=== PATIENT | male | born 1960 | race Caucasian/White ===

== ENCOUNTER 2022-08-09 16:23 | Observation (INO) | payer SELFPAY ==
[2022-08-09 17:22] LABS: Hemoglobin 16.4 g/dL (14.0-18.0); Mean Corpuscular HGB CONC 35.3 g/dL (32.0-36.0); Mean Corpuscular Hemoglobin 32.9 pg (27.0-31.0); Mean Corpuscular Volume 93.3 fl (78.0-98.0); Mean Platelet Volume 8.3 fL (7.4-10.4); Platelet Count 194 10x3/uL (130-400); RBC Distribution Width 11.1 % (11.5-14.5); Red Blood Cell (RBC) Count 4.98 mill/uL (4.70-6.10); White Blood Cell (WBC) Count 7.7 10x3/uL (4.8-10.8)
[2022-08-09] MEDS ORDERED: Vancomycin 1 GM VIAL ONE (17:37)
[2022-08-09] MEDS ORDERED: Ketorolac Tromethamine 30 MG/ML VIAL ONE (17:37)
[2022-08-09 17:39] LABS: #Lymphocytes 0.8 thou/uL (1.20-3.40); #Monocytes 0.7 thou/uL (0.11-0.59); #Neutrophils 6.2 thou/uL (1.40-6.50); %Basophils 0.5 % (0.0-1.0); %Eosinophils 0.2 % (0.0-10.0); %Lymphocytes 10.5 % (21.0-51.0); %Monocytes 8.6 % (0.0-10.0); %Neutrophils 80.1 % (42.0-75.0); MDiff Complete? YES; Platelet Morphology Comment Appears Adequate; RBC Morphology Normal
[2022-08-09 17:41] LABS: ALT (SGPT) 31 U/L (8-55); AST (SGOT) 31 U/L (5-34); Alkaline Phosphatase 56 U/L (40-110); Anion Gap 14 mmol/L (10-20); BUN (Urea Nitrogen) 5 mg/dL (8.4-25.7); Bilirubin, Total 0.4 mg/dL (0.2-1.2); Calc. Creatinine Clearance 0 mL/min (70-130); Calcium 8.6 mg/dL (7.8-10.44); Carbon Dioxide 25 mmol/L (22-29); Chloride 81 mmol/L (98-107); Estimated GFR 108; Globulin 2.8 g/dL (2.4-3.5); Glucose 124 mg/dL (70-105); Magnesium 1.7 mg/dL (1.6-2.6); Potassium 3.5 mmol/L (3.5-5.1); Protein, Total 6.8 g/dL (6.0-8.3)
[2022-08-09 17:43] LABS: Sodium 116 mmol/L (136-145)
[2022-08-09] MEDS ORDERED: Meropenem 2 GM in Sodium Chloride 0.9% 100 ML IVPB SCH (19:15)
[2022-08-09 20:55] LABS: SARS-CoV-2 NAA Rapid Test Not Detected (NotDetected)
[2022-08-09] MEDS: Sodium Chloride 0.9% 1,000 ML IV SCH (20:56)
[2022-08-09] MEDS ORDERED: Ondansetron ODT 4 MG TAB SL PRN (21:00)
[2022-08-09] MEDS ORDERED: Ondansetron PF 4 MG/2 ML Vial IVP PRN (21:00)
[2022-08-09] MEDS ORDERED: Acetaminophen 325 MG TAB PO PRN (21:00)
[2022-08-09] MEDS ORDERED: traMADol HCl 50 MG TAB PO PRN (21:25)
[2022-08-10] MEDS ORDERED: Vancomycin HCl 1 GM in Sodium Chloride 0.9% 250 ML 250 ML IVPB SCH ×3 (02:00→08:45)
[2022-08-10] MEDS ORDERED: Meropenem 1 GM in Sodium Chloride 0.9% 100 ML IVPB SCH (05:00)
[2022-08-10] MEDS ORDERED: Ondansetron ODT 4 MG TAB PO PRN (07:34)
[2022-08-10] MEDS ORDERED: Polyethylene Glycol 3350 17 GM Packet PO PRN (07:34)
[2022-08-10 07:46] LABS: ALT (SGPT) 32 U/L (8-55); AST (SGOT) 33 U/L (5-34); Albumin 3.4 g/dL (3.5-5.0); Alkaline Phosphatase 45 U/L (40-110); Anion Gap 10 mmol/L (10-20); BUN (Urea Nitrogen) Less than 4 mg/dL (8.4-25.7); Bilirubin, Total 0.4 mg/dL (0.2-1.2); Calc. Creatinine Clearance 136 mL/min (70-130); Calcium 7.9 mg/dL (7.8-10.44); Carbon Dioxide 25 mmol/L (22-29); Chloride 84 mmol/L (98-107); Estimated GFR 112; Globulin 2.3 g/dL (2.4-3.5); Glucose 118 mg/dL (70-105); Potassium 3.4 mmol/L (3.5-5.1); Protein, Total 5.7 g/dL (6.0-8.3)
[2022-08-10 07:47] LABS: #Lymphocytes 0.7 thou/uL (1.20-3.40); #Monocytes 0.8 thou/uL (0.11-0.59); %Basophils 0.5 % (0.0-1.0); %Eosinophils 0.1 % (0.0-10.0); %Lymphocytes 10.5 % (21.0-51.0); %Monocytes 12.3 % (0.0-10.0); %Neutrophils 76.6 % (42.0-75.0); Hemoglobin 15.7 g/dL (14.0-18.0); Mean Corpuscular HGB CONC 36.4 g/dL (32.0-36.0); Mean Corpuscular Hemoglobin 33.2 pg (27.0-31.0); Mean Corpuscular Volume 91.3 fl (78.0-98.0); Mean Platelet Volume 7.8 fL (7.4-10.4); Platelet Count 171 10x3/uL (130-400); Red Blood Cell (RBC) Count 4.72 mill/uL (4.70-6.10); White Blood Cell (WBC) Count 6.6 10x3/uL (4.8-10.8)
[2022-08-10 07:49] LABS: Sodium 116 mmol/L (136-145)
[2022-08-10] MEDS: cefTRIAXone\\ROCEPHIN 1 GM in Sodium Chloride 0.9% 100 ML IVPB SCH (08:18)
[2022-08-10] MEDS: Aspirin 81 mg Enteric Coated Tablet PO SCH (08:25)
[2022-08-10] MEDS: Magnesium Oxide 400 MG TAB PO SCH (08:32)
[2022-08-10] MEDS: Potassium Chloride 20 MEQ TAB PO SCH (08:32)
[2022-08-10] MEDS: HYDROcodone/Acetaminophen 10/325 mg Tablet PO SCH ×2 (08:32→16:09)
[2022-08-10] MEDS ORDERED: Thiamine 100 MG TAB PO SCH (11:45)
[2022-08-10] MEDS: Sodium Chloride 0.9% 1,000 ML IV SCH (12:45)
[2022-08-10 14:02] LABS: Creatinine, Urine 58.35 mg/dL (63-166)
[2022-08-10] MEDS ORDERED: Sodium Chloride 1 GM TAB PO SCH (15:30)
[2022-08-10 19:19] LABS: Anion Gap 10 mmol/L (10-20); BUN (Urea Nitrogen) 5 mg/dL (8.4-25.7); Calc. Creatinine Clearance 124 mL/min (70-130); Calcium 8.2 mg/dL (7.8-10.44); Carbon Dioxide 27 mmol/L (22-29); Chloride 88 mmol/L (98-107); Estimated GFR 110; Glucose 130 mg/dL (70-105); Potassium 3.2 mmol/L (3.5-5.1); Sodium 122 mmol/L (136-145)
[2022-08-10] MEDS: Ibuprofen 800 MG TAB PO PRN (20:32)
[2022-08-11] MEDS: Ibuprofen 800 MG TAB PO PRN ×2 (05:13→21:20)
[2022-08-11 05:57] LABS: ALT (SGPT) 50 U/L (8-55); AST (SGOT) 49 U/L (5-34); Albumin 3.7 g/dL (3.5-5.0); Alkaline Phosphatase 45 U/L (40-110); Anion Gap 12 mmol/L (10-20); BUN (Urea Nitrogen) 4 mg/dL (8.4-25.7); Bilirubin, Total 0.3 mg/dL (0.2-1.2); Calc. Creatinine Clearance 102 mL/min (70-130); Calcium 8.8 mg/dL (7.8-10.44); Carbon Dioxide 29 mmol/L (22-29); Cardiac Risk 2.6 (Less than 4.5); Chloride 95 mmol/L (98-107); Cholesterol 132 mg/dl (< 200 Desired); Estimated GFR 104; Globulin 2.4 g/dL (2.4-3.5); Glucose 106 mg/dL (70-105); HDL Cholesterol 50 mg/dL (>60 Neg Risk); LDL Cholesterol, Calculated 72 mg/dL; Potassium 4.1 mmol/L (3.5-5.1); Protein, Total 6.1 g/dL (6.0-8.3); Sodium 132 mmol/L (136-145); Triglycerides 50 mg/dL (Less than 150)
[2022-08-11] MEDS: Nicotine 21 MG PATCH TD SCH (08:40)
[2022-08-11] MEDS: cefTRIAXone\\ROCEPHIN 1 GM in Sodium Chloride 0.9% 100 ML IVPB SCH (08:40)
[2022-08-11] MEDS: Aspirin 81 mg Enteric Coated Tablet PO SCH (08:40)
[2022-08-11] MEDS: Potassium Chloride 20 MEQ TAB PO SCH (08:41)
[2022-08-11] MEDS: Sodium Chloride 1 GM TAB PO SCH (08:41)
[2022-08-11] MEDS: Magnesium Oxide 400 MG TAB PO SCH (08:41)
[2022-08-11] MEDS: Thiamine 100 MG TAB PO SCH (08:41)
[2022-08-11] MEDS: HYDROcodone/Acetaminophen 10/325 mg Tablet PO SCH ×3 (08:44→16:44)
[2022-08-11] MEDS ORDERED: predniSONE 10 MG TAB PO SCH (09:30)
[2022-08-11] MEDS ORDERED: diphenhydrAMINE 25 MG CAP PO SCH (09:30)
[2022-08-11 11:18] LABS: Anion Gap 11 mmol/L (10-20); BUN (Urea Nitrogen) 6 mg/dL (8.4-25.7); Calc. Creatinine Clearance 111 mL/min (70-130); Calcium 8.3 mg/dL (7.8-10.44); Carbon Dioxide 29 mmol/L (22-29); Chloride 96 mmol/L (98-107); Estimated GFR 106; Glucose 102 mg/dL (70-105); Potassium 3.4 mmol/L (3.5-5.1); Sodium 133 mmol/L (136-145)
[2022-08-11 12:36] VITALS: BMI 21.7
[2022-08-11] MEDS: Triple Antibiotic Oint 1 GM Packet TOP SCH (21:18)
[2022-08-12] MEDS: HYDROcodone/Acetaminophen 10/325 mg Tablet PO SCH ×3 (00:15→15:48)
[2022-08-12 06:03] LABS: Anion Gap 11 mmol/L (10-20); BUN (Urea Nitrogen) 5 mg/dL (8.4-25.7); Calc. Creatinine Clearance 109 mL/min (70-130); Calcium 8.5 mg/dL (7.8-10.44); Chloride 97 mmol/L (98-107); Estimated GFR 105; Glucose 85 mg/dL (70-105); Sodium 132 mmol/L (136-145)
[2022-08-12 06:09] LABS: Carbon Dioxide 28 mmol/L (22-29)
[2022-08-12] MEDS: predniSONE 10 MG TAB PO SCH (08:58)
[2022-08-12] MEDS: Sodium Chloride 1 GM TAB PO SCH (08:58)
[2022-08-12] MEDS: Potassium Chloride 20 MEQ TAB PO SCH (08:58)
[2022-08-12] MEDS: Aspirin 81 mg Enteric Coated Tablet PO SCH (08:59)
[2022-08-12] MEDS: Nicotine 21 MG PATCH TD SCH (08:59)
[2022-08-12] MEDS: Thiamine 100 MG TAB PO SCH (08:59)
[2022-08-12] MEDS: Magnesium Oxide 400 MG TAB PO SCH (08:59)
[2022-08-12] MEDS: Triple Antibiotic Oint 1 GM Packet TOP SCH ×2 (09:00→21:06)
[2022-08-12] MEDS ORDERED: FLU VACC QS2022-23(6MOS UP)/PF 60 MCG/0.5 ML SYRINGE IM ONE (09:00)
[2022-08-12] MEDS: valACYclovir 500 MG TAB PO SCH ×3 (15:49→21:07)
[2022-08-12] MEDS: Ibuprofen 800 MG TAB PO PRN (21:06)
[2022-08-13] MEDS: HYDROcodone/Acetaminophen 10/325 mg Tablet PO SCH ×3 (00:09→16:20)
[2022-08-13] MEDS: Ibuprofen 800 MG TAB PO PRN ×3 (03:45→21:06)
[2022-08-13] MEDS: diphenhydrAMINE 25 MG CAP PO PRN ×2 (03:45→21:06)
[2022-08-13] MEDS: predniSONE 10 MG TAB PO SCH (09:21)
[2022-08-13] MEDS: Potassium Chloride 20 MEQ TAB PO SCH (09:21)
[2022-08-13] MEDS: Thiamine 100 MG TAB PO SCH (09:21)
[2022-08-13] MEDS: Aspirin 81 mg Enteric Coated Tablet PO SCH (09:21)
[2022-08-13] MEDS: Triple Antibiotic Oint 1 GM Packet TOP SCH ×2 (09:23→21:07)
[2022-08-13] MEDS: Magnesium Oxide 400 MG TAB PO SCH (09:23)
[2022-08-13] MEDS: Sodium Chloride 1 GM TAB PO SCH (09:23)
[2022-08-13] MEDS: Nicotine 21 MG PATCH TD SCH (09:23)
[2022-08-13] MEDS: valACYclovir 500 MG TAB PO SCH ×3 (09:42→21:07)
[2022-08-14 05:56] LABS: Anion Gap 13 mmol/L (10-20); BUN (Urea Nitrogen) 10 mg/dL (8.4-25.7); Calc. Creatinine Clearance 103 mL/min (70-130); Calcium 9.2 mg/dL (7.8-10.44); Carbon Dioxide 29 mmol/L (22-29); Chloride 98 mmol/L (98-107); Estimated GFR 104; Glucose 91 mg/dL (70-105); Potassium 4.6 mmol/L (3.5-5.1); Sodium 135 mmol/L (136-145)
[2022-08-14 06:28] VITALS: BP 152/90; TEMP 97.5
[2022-08-14] MEDS: Triple Antibiotic Oint 1 GM Packet TOP SCH (08:45)
[2022-08-14] MEDS: Nicotine 21 MG PATCH TD SCH (08:45)
[2022-08-14] MEDS: predniSONE 10 MG TAB PO SCH (08:46)
[2022-08-14] MEDS: Sodium Chloride 1 GM TAB PO SCH (08:46)
[2022-08-14] MEDS: Magnesium Oxide 400 MG TAB PO SCH (08:46)
[2022-08-14] MEDS: Aspirin 81 mg Enteric Coated Tablet PO SCH (08:46)
[2022-08-14] MEDS: valACYclovir 500 MG TAB PO SCH (08:46)
[2022-08-14] MEDS: Potassium Chloride 20 MEQ TAB PO SCH (08:46)
[2022-08-14] MEDS: Thiamine 100 MG TAB PO SCH (08:47)
[2022-08-14] MEDS: HYDROcodone/Acetaminophen 10/325 mg Tablet PO SCH ×2 (08:47)
[2022-08-14] MEDS: Ibuprofen 800 MG TAB PO PRN (12:10)
[2022-08-14] MEDS: diphenhydrAMINE 25 MG CAP PO PRN (12:10)
== END 2022-08-14 14:40 | disposition home or self-care (01) ==
LOC: BURERS 16:23 → BURMED 19:00
PROVIDERS: ADMIT Family Medicine; ATTEND Family Medicine
DX: B02.30 Zoster ocular disease, unspecified (principal); L03.211 Cellulitis of face; E87.1 Hypo-osmolality and hyponatremia; R11.0 Nausea; F17.210 Nicotine dependence, cigarettes, uncomplicated; F12.10 Cannabis abuse, uncomplicated; Z79.82 Long term (current) use of aspirin; Z88.0 Allergy status to penicillin; Z20.822 Contact with and (suspected) exposure to COVID-19
CPT/HCPCS: 36415; 70486; 71046; 80048; 80053; 80061; 82533; 82570; 83605; 83735; 83930; 83935; 84300; 84443; 85025; 87040; 96365; 96375; G0378; J0696; J1885; J1956; J2185; J3370; J3490; J7050; J7512; U0002